=== PATIENT | female | born 1990 | race Hispanic/Latino ===

== ENCOUNTER 2016-05-29 16:43 | Emergency (ER) | payer OTHER ==
[2016-05-29 17:18] LABS: ABSOLUTE BASOPHIL COUNT 0 /CUMM (0.0-0.2); ABSOLUTE EOSINOPHIL COUNT 0.2 /CUMM (0.0-0.7); ABSOLUTE GRANULOCYTE CT 8.2 /CUMM (1.4-6.5); ABSOLUTE LYMPH COUNT 2.6 /CUMM (1.2-3.4); ABSOLUTE MONOCYTE COUNT 0.7 /CUMM (0.10-0.60); BASOPHIL % 0.3 % (0.0-2.0); EOSINOPHIL % 1.9 % (0-5); GRANULOCYTE % 69.2 % (42.2-75.2); HEMATOCRIT 37.7 % (37-47); MEAN CORPUSCULAR HGB 26.2 PG (27.0-31.0); MEAN CORPUSCULAR VOLUME 79.4 FL (81.0-99.0); MEAN PLATELET VOLUME 9.2 FL (7.4-10.4); PLATELET COUNT 267 /CUMM (130-400); RBC DISTRIBUTION WIDTH 14.3 % (11.5-14.5); RED BLOOD CELL CT 4.74 /CUMM (4.20-5.40); WHITE BLOOD CELL COUNT 11.8 /CUMM (4.8-10.8)
--- NOTE | 2016-05-29 18:37 | ED CARDIAC/CP/PALPITATIONS ---
History of Present Illness General Chief Complaint: Chest Pain Stated Complaint: CP Source: patient, family, [employer] engineer Exam Limitations: language barrier Vital Signs & Intake/Output Vital Signs & Intake/Output Vital Signs Date Time Temp Pulse Resp B/P Pulse O2 O2 Flow FiO2 Ox Delivery Rate 05/29 1931 88 18 109/55 98 Room Air 05/29 1909 Room Air 05/29 1652 89 28 116/74 100 Allergies Coded Allergies: Penicillins (ITCHY, RED, HIVES 05/29/16) Reconcile Medications Ibuprofen 600 MG TABLET 1 TAB PO TID PRN pain with food Triage Note: CP X 2 HRS REPORTS FEELS OUT OF BREATHE PT VERY DRAMATIC [place] SPEAKING ONLY. HX OF ANXIETY NO PERIOD X 5 MONTHS BUT NO CHANCE OF PREG PER PT. Triage Nurses Notes Reviewed? yes : No Patient currently breastfeeds: No HPI: 25-year-old female with multiple medical complaints. She has no medical history does not take any control. No significant family history. She's had a sudden onset of anterior chest pain with tingling in both hands and a feeling of pain which is sharp to the anterior chest left side which is worse with palpation and taking deep breaths and motion. She also has over the last several months intermittent epigastric symptoms of burning after drinking coffee and uses in the epigastric region. She also complains of not having her period for the last 5 months. She denies any vaginal discharge or bleeding. No back pain. (BAR GOMEZ) Past History Travel History Traveled to [place] past 21 day No Medical History Any Pertinent Medical History? see below for history Neurological: NONE EENT: NONE Cardiovascular: NONE Respiratory: NONE Gastrointestinal: NONE Hepatic: NONE Renal: NONE Musculoskeletal: NONE Psychiatric: anxiety Endocrine: NONE Surgical History Surgical History: non-contributory Psychosocial History What is your primary language Liberian Tobacco Use: Never used Family History Hx Contributory? No (BAR GOMEZ) Review of Systems Review of Systems Constitutional: Reports: see HPI. EENTM: Reports: no symptoms. Respiratory: Reports: no symptoms. Cardiovascular: Reports: see HPI. GI: Reports: see HPI. Genitourinary: Reports: no symptoms. Musculoskeletal: Reports: no symptoms. Skin: Reports: no symptoms. Neurological/Psychological: Reports: no symptoms. Hematologic/Endocrine: Reports: no symptoms. Immunologic/Allergic: Reports: no symptoms. All Other Systems: Reviewed and Negative (BAR GOMEZ) Physical Exam Physical Exam Respiratory: normal breath sounds, no respiratory distress Cardiovascular: regular rate/rhythm Comments: Well-developed well-nourished no apparent distress. HEENT: Atraumatic, extraocular motion intact Neck: Supple, no lymphadenopathy Back: Nontender Respiratory: No respiratory distress, or tenderness to the left anterior chest region, point tenderness which is moderate to severe. Abdomen: Soft nontender nondistended Extremities: No edema, full range of motion Neuro: Alert and oriented x3 Psych: Mood affect normal, normal memory normal judgment. Skin: Warm and dry, no rash on exposed skin Core Measures ACS in differential dx? Yes Severe Sepsis Present: No Septic Shock Present: No (BAR GOMEZ) Progress Differential Diagnosis: AMI, aortic dissection, atrial fibrillation, cholecystitis, CHF/pulm edema, costochondritis, hyperkalemia, hypovolemia, hyperthyroid, hyperventilation, intracranial hemorrhage, musculoskeletal pain, myocarditis, pancreatitis, pericarditis, pneumonia, pneumothorax, PSVT, pulmonary embolism, PUD/GERD, PVCs/PACs, respiratory failure, rib fracture, sepsis, unstable angina, V-fib/V-Tach, WPW syndrome Plan of Care: Orders Procedure Date/time Status URINE 05/29 165 Complete TROPONIN LEVEL 05/29 1654 Complete D-DIMER 05/29 165 Complete COMPREHENSIVE METABOLIC PANEL 05/29 1654 Complete CBC WITHOUT DIFFERENTIAL 05/29 165 Complete EKG 05/29 1645 Active Laboratory Tests 05/29/16 1703: Anion Gap 15, Estimated GFR > 60, BUN/Creatinine Ratio 16.7, Glucose 80, Calcium 9.9, Total Bilirubin 0.2, AST 14, ALT 41, Alkaline Phosphatase 108, Troponin I < 0.01, Total Protein 7.7, Albumin 4.5, Globulin 3.2, Albumin/Globulin Ratio 1.4, D-Dimer 228, CBC w Diff NO MAN DIFF REQ, RBC 4.74, MCV 79.4 L, MCH 26.2 L, RDW 14.3, MPV 9.2, Gran % 69.2, Lymphocytes % 22.4, Monocytes % 6.2, Eosinophils % 1.9, Basophils % 0.3, Absolute Granulocytes 8.2 H, Absolute Lymphocytes 2.6, Absolute Monocytes 0.7 H, Absolute Eosinophils 0.2, Absolute Basophils 0, PUBS MCHC 33.0, Urine Test NEGATIVE Initial ED EKG: NSR, rate (81), nonspecific ST T wave chg Rhythm Strip: normal sinus rhythm Comments: Patient with multiple complaints, symptoms consistent with costochondritis/chest pain goes, the epigastric symptoms may be related to reflux and I have recommended that she stop drinking juice and coffee and follows up with her primary care doctor symptoms continue. As far as her being amenorrheic, recommend following up with [facility] for this. Her test was negative (BAR GOMEZ) Departure Departure Disposition: HOME OR SELF CARE Condition: Stable Clinical Impression Primary Impression: Costochondritis, acute Referrals: MELVIN ZAVALA MD PATIENT HAS NO PRIMARY CARE DR (PCP/Family) Additional Instructions: Take medicine for PAIN as needed Please follow up with a primary care doctor Departure Forms: Customer Survey General Discharge Information Prescriptions: Current Visit Scripts Ibuprofen 1 TAB PO TID PRN pain #30 TAB with food (BAR GOMEZ) PA/[employer]EDSPREAD CUTTER HAND Co-Sign Statement Statement: ED Attending supervision documentation- [] I saw and evaluated the patient. I have also reviewed all the pertinent lab results and diagnostic results. I agree with the findings and the plan of care as documented in the PA's/[employer]SPREAD CUTTER HAND's documentation. x I have reviewed the ED Record and agree with the PA's/BEDSPREAD CUTTER HAND's documentation. [] Additions or exceptions (if any) to the PAs/[employer]EDSPREAD CUTTER HAND's note and plan are summarized below: [] (CHERRY TRACY,DOMINGA) Critical Care Note Critical Care Note Critical Care Time: non-applicable (BAR GOMEZ)
[2016-05-29] MEDS ORDERED: IBUPROFEN600 M1 PO (19:13)
[2016-05-29 19:31] VITALS: BP 109/55
== END 2016-05-29 19:32 ==
LOC: ERH 16:43
PROVIDERS: Emergency Medicine
DX: R07.89 Other chest pain (principal); M94.0 Chondrocostal junction syndrome [Tietze]
CPT/HCPCS: 81025; 93005; 93010